=== PATIENT | female | born 1930 | race Caucasian/White ===

== ENCOUNTER 2017-12-03 11:52 | Inpatient (IN) | payer OTHER ==
[~2017-12-03] VITALS: Ht 160 cm; Wt 54.3 kg
[~2017-12-03 11:52] MED LIST: ASPCH81X PO; CARV3.12 PO; DOCU60SY PO; LEVE100S10 PO; LISI-729 PO; MULTTAB58 PO; OMEP20TA PO; POLY335040 PO; [UNRECOGNIZED DRUG - REMARK]
[2017-12-03 12:44] LABS: BASO % 0.6 %; BASO ABS # 0.05 K/uL (0-0.2); EOS % 0.8 %; EOS ABS # 0.07 K/uL (0-0.5); HEMATOCRIT 48.7 % (37-47); IG# 0.02 K/uL (0.00-0.02); LYMPH % 21.1 %; MEAN CELL VOLUME 100.2 fL (80-100); MEAN CORPUSCULAR HEMOGLOBIN 32.9 pg (25-34); MEAN CORPUSCULAR HGB CONC 32.9 g/dl (32-36); MEAN PLATELET VOLUME 12.5 fL (7.4-10.4); MONO % 6.4 %; MONO ABS # 0.58 K/uL (0.11-0.59); NEUT % 70.9 %; NEUT ABS # 6.39 K/uL (1.4-6.5); PLATELET COUNT 252 K/uL (130-400); RED CELL DISTRIBUTION WIDTH CV 13.5 % (11.5-14.5); WHITE BLOOD COUNT 9.01 K/uL (4.8-10.8)
[2017-12-03 13:03] LABS: ALBUMIN 3.4 gm/dl (3.4-5.0); CALCIUM 10.7 mg/dl (8.5-10.1); CREATININE 1.06 mg/dl (0.60-1.20)
[2017-12-03] MEDS ORDERED: SODIUM CHLORIDE 0.9% 1000ML 1,000 ML IV STA (13:04)
[2017-12-03] MEDS ORDERED: HYDR-5688 PO (13:16)
[2017-12-03] MEDS ORDERED: SODIUM CHLORIDE 0.9% 500ML 500 ML IV STA (13:33)
--- NOTE | 2017-12-03 13:43 | EMERGENCY ROOM VISIT NOTE ---
History Report prepared by Crystal: Balaji Waldron Under the Supervision of: Dr. David Núñez M.D. First contact with patient: 12:06 Chief Complaint: ABDOMINAL PAIN Stated Complaint: ABDOMINAL DISTENTION Nursing Triage Summary: Patient sent ALS from [facility] for abdominal distension with x-ray showing colonic ileus and elevated liver enzymes. Patient unable to verbally communicate History of Present Illness The patient is a 87 year old female who presents to the Emergency Room with complaints of RUQ abdominal pain that began a few days ago. This HPI is limited secondary to the patient's mental status. This history is provided by the patient's assisted. 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 She is nonverbal. Over this time, they have noticed that the patient's abdomen seems more distended than usual. The patient received an X-ray which showed colonic ileus. Source of History: assisted notes History Limited By: AMS Onset: a couple days ago Position: abdomen Symptom Intensity: moderate Quality: ache Timing: constant Review of Systems ROS is limited secondary to the patient's mental status. Past Medical & Surgical Medical Problems: (1) Alzheimer's disease (2) Benign hypertension (3) Dehydration (4) Dementia (5) Hysterectomy Family History Omitted secondary to the patient's age. Social History Smokeless Tobacco Use: No Alcohol Use: none Drug Use: none Marital Status: Occupation Status: retired Current/Historical Medications Scheduled Aspirin (Aspirin Chewable), 81 MG PO DAILY Carvedilol (Coreg), 3.125 MG PO BID Cholecalciferol (Vitamin D3), 1 TAB PO DAILY Docusate Sodium (Silace), 100 MG PO BID Levetiracetam (Keppra), 5 ML PO BID Lisinopril (Zestril), 5 MG PO DAILY Oseltamivir (Tamiflu), 75 MG PO DAILY Polyethylene Glycol 3350 (Miralax), 17 GM PO DAILY Ranitidine (Zantac), 150 MG PO HS Sennosides-Docusate Sodium (Senna-S), 2 TAB PO DAILYBD Scheduled PRN Bisacodyl (Bisac-Evac), 1 SUPP RE DAILY PRN for Constipation Hydrocodone/Acetaminophen 5MG/325MG ([place] 5MG/325MG), 1 TABLET PO BID PRN for Pain Allergies Coded Allergies: No Known Allergies (Verified , 12/03/17) Physical Exam Vital Signs Date Time Temp Pulse Resp B/P (MAP) Pulse Ox O2 Delivery O2 Flow Rate FiO2 12/03/17 18:23 51 16 159/91 99 Room Air 12/03/17 16:41 56 16 151/89 98 Room Air 12/03/17 16:33 52 12/03/17 14:48 54 16 139/78 97 Room Air 12/03/17 13:00 70 20 130/77 98 Room Air 12/03/17 12:26 67 12/03/17 12:05 36.3 67 20 130/77 97 Room Air Physical Exam GENERAL: Awake, alert, well-appearing, in no distress, grimacing intermittently. HENT: Normocephalic, atraumatic. Oropharynx unremarkable. EYES: Normal conjunctiva. Sclera non-icteric. NECK: Supple. No nuchal rigidity. FROM. No masses. RESPIRATORY: Clear to auscultation. No wheezes. CARDIAC: Normal rate. Normal rhythm. No murmurs. No rubs. Extremities warm and well perfused. Pulses equal. No JVD. GI: Soft, non-distended. Possible RUQ tenderness to palpation. No rebound or guarding. No masses. RECTAL: Deferred. MUSCULOSKELETAL: Atraumatic. Chest examination reveals no tenderness. The back is symmetrical on inspection without obvious abnormality. There is no CVA tenderness to palpation. No joint edema. LOWER EXTREMITIES: Calves are equal size bilaterally and non-tender. No edema. No discoloration. NEURO: Altered sensorium. Mumbling but essentially nonverbal. Contractures in the lower extremities and LUE. Opens eyes to voice. SKIN: No rash or jaundice noted. Medical Decision & Procedures ER Provider Diagnostic Interpretation: Radiology results as stated below per my review and radiologist interpretation: ABDOMEN AND PELVIS CT WITHOUT CONTRAST CT DOSE: 341.02 mGy.cm HISTORY: Acute abdominal distention with elevated LFTs elevated lfts, ileus on outpt xray TECHNIQUE: Multiaxial CT images of the abdomen and pelvis were performed without contrast. A dose lowering technique was utilized adhering to the principles of ALARA. COMPARISON STUDY: Right upper quadrant ultrasound of same day, abdominal ultrasound 12/07/2012. FINDINGS: Mild dependent subsegmental atelectasis. Calcified right hilar lymph nodes with calcified granuloma adjacent to the minor fissure. Mild nonspecific right basilar bronchial wall thickening. No pneumatosis or pneumoperitoneum identified. The imaged inferior cardiac chambers are within normal limits. Coronary arterial disease. Calcified granulomas are seen throughout the spleen. Pancreas and right adrenal gland are unremarkable. Nodular thickening of the left adrenal gland suggests hyperplasia. Low attenuating circumscribed ovoid 3.3 x 2.3 center lesion of the left hepatic lobe suggests hepatic cyst. No intrahepatic biliary ductal dilation identified. Cholelithiasis noted within the fundal gallbladder. Common bile duct is mildly dilated measuring up to 10 mm. No obstructing stone or lesion within the common bile duct is identified. Ovoid low attenuating exophytic lesion of the superior pole left kidney, 4.3 x 3.1 cm suggests renal cyst. 2 mm nonobstructing calculus of the inferior pole right kidney. There is no ureteral calculi or obstructive uropathy identified. Urinary bladder is collapsed with a Willis catheter in place. Air within the bladder lumen is likely secondary to recent instrumentation. Moderate atherosclerosis of the aorta without aneurysm. There is no bulky adenopathy identified. No bowel obstruction identified. There is moderate rectal wall thickening with minimal surrounding stranding and large rectal stool ball measuring up to 6.5 cm transversely. Extensive sigmoid diverticulosis without CT evidence of acute diverticulitis. Mild diastases recti. Soft tissues are unremarkable. Calcified granulomas of the subcutaneous gluteal tissues. The bones appear osteoporotic. There is a chronic appearing displaced subcapital fracture of the left femur with superolateral displacement of approximately 2.4 cm. IMPRESSION: 1. Large stool ball in the rectum with associated rectal wall thickening and mild surrounding inflammatory stranding suggests stercoral proctitis. No associated bowel obstruction. 2. Colonic diverticulosis without CT evidence of acute diverticulitis. 3. Cholelithiasis and mild common bile duct dilation without CT evidence of acute cholecystitis. 4. Prior granulomatous disease. 5. 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 6. 2 mm nonobstructing calculus of the inferior pole right kidney. Electronically signed by: Darrel Hernandez M.D. 12/03/2017 2:58 PM Dictated Date/Time: 12/03/2017 2:49 PM CHEST ONE VIEW PORTABLE HISTORY: elevated LFTs, abdomen distension COMPARISON: Chest 11/27/2012. FINDINGS: The patient is slightly rotated. The lungs are clear. No pleural effusions. No pneumothorax. The heart is normal in size. IMPRESSION: No acute process. Electronically signed by: Pedro Dia M.D. 12/03/2017 1:41 PM Dictated Date/Time: 12/03/2017 1:37 PM ABDOMINAL ULTRASOUND, RIGHT UPPER QUADRANT HISTORY: Altered mental status. Elevated liver function tests. COMPARISON: Abdominal ultrasound November 27, 2012. FINDINGS: Exam is compromised by suboptimal penetration. Note is made of a 3.8 cm hepatic cyst. The pancreas is obscured by overlying bowel gas. The right kidney is also largely obscured on this exam. No gallbladder wall thickening is noted. Suspected gallstones within the gallbladder fundus are noted. There is mild dilatation of the common bile duct which measures 9 mm in caliber. This appears diminished compared to exam of November 27, 2012. IMPRESSION: 1. Cholelithiasis. No sonographic evidence of acute cholecystitis. 2. Mild dilatation of the common bile duct which is either diminished or unchanged since ultrasound of November 27, 2012. Electronically signed by: Giancarlo Jacques M.D. 12/03/2017 2:47 PM Dictated Date/Time: 12/03/2017 2:42 PM Laboratory Results 12/03/17 12:25 Red Blood Count 4.86, Mean Corpuscular Volume 100.2, Mean Corpuscular Hemoglobin 32.9, Mean Corpuscular Hemoglobin Concent 32.9, Mean Platelet Volume 12.5, Neutrophils (%) (Auto) 70.9, Lymphocytes (%) (Auto) 21.1, Monocytes (%) ( Auto) 6.4, Eosinophils (%) (Auto) 0.8, Basophils (%) (Auto) 0.6, Neutrophils # ( Auto) 6.39, Lymphocytes # (Auto) 1.90, Monocytes # (Auto) 0.58, Eosinophils # ( Auto) 0.07, Basophils # (Auto) 0.05 12/03/17 12:25 Test 12/03/17 12:25 12/03/17 13:10 12/03/17 16:56 White Blood Count 9.01 K/uL (4.8-10.8) Red Blood Count 4.86 M/uL (4.2-5.4) Hemoglobin 16.0 g/dL (12.0-16.0) Hematocrit 48.7 % (37-47) Mean Corpuscular Volume 100.2 fL (80-100) Mean Corpuscular Hemoglobin 32.9 pg (25-34) Mean Corpuscular Hemoglobin Concent 32.9 g/dl (32-36) Platelet Count 252 K/uL (130-400) Mean Platelet Volume 12.5 fL (7.4-10.4) Neutrophils (%) (Auto) 70.9 % Lymphocytes (%) (Auto) 21.1 % Monocytes (%) (Auto) 6.4 % Eosinophils (%) (Auto) 0.8 % Basophils (%) (Auto) 0.6 % Neutrophils # (Auto) 6.39 K/uL (1.4-6.5) Lymphocytes # (Auto) 1.90 K/uL (1.2-3.4) Monocytes # (Auto) 0.58 K/uL (0.11-0.59) Eosinophils # (Auto) 0.07 K/uL (0-0.5) Basophils # (Auto) 0.05 K/uL (0-0.2) RDW Standard Deviation 49.0 fL (36.4-46.3) RDW Coefficient of Variation 13.5 % (11.5-14.5) Immature Granulocyte % (Auto) 0.2 % Immature Granulocyte # (Auto) 0.02 K/uL (0.00-0.02) Anion Gap 6.0 mmol/L (3-11) Est Creatinine Clear Calc Drug Dose 32.1 ml/min Estimated GFR () 55.4 Estimated GFR (Non- 47.8 BUN/Creatinine Ratio 37.1 (10-20) Calcium Level 10.7 mg/dl (8.5-10.1) Total Bilirubin 2.7 mg/dl (0.2-1) Direct Bilirubin 0.5 mg/dl (0-0.2) Aspartate Amino Transf (AST/SGOT) 44 U/L (15-37) Alanine Aminotransferase (ALT/SGPT) 61 U/L (12-78) Alkaline Phosphatase 84 U/L (45-117) Troponin I 0.035 ng/ml (0-0.045) Total Protein 7.0 gm/dl (6.4-8.2) Albumin 3.4 gm/dl (3.4-5.0) Lipase 312 U/L (73-393) Urine Color DK YELLOW Urine Appearance CLEAR (CLEAR) Urine pH 5.0 (4.5-7.5) Urine Specific Tye 1.025 (1.000-1.030) Urine Protein NEG (NEG) Urine Glucose (UA) NEG (NEG) Urine Ketones TRACE (NEG) Urine Occult Blood NEG (NEG) Urine Nitrite POS (NEG) Urine Bilirubin NEG (NEG) Urine Urobilinogen NEG (NEG) Urine Leukocyte Esterase MODERATE (NEG) Urine WBC (Auto) 10-30 /hpf (0-5) Urine RBC (Auto) 0-4 /hpf (0-4) Urine Hyaline Casts (Auto) 5-10 /lpf (0-5) Urine Epithelial Cells (Auto) 0-5 /lpf (0-5) Urine Bacteria (Auto) 1+ (NEG) Lactic Acid Level 0.7 mmol/L (0.4-2.0) Procalcitonin < 0.05 ng/ml (0-0.5) Laboratory results reviewed by me Medications Administered Medications (Trade) Dose Ordered Sig/Yusuf Route Start Time Stop Time Status Last Admin Dose Admin Sodium Chloride 1,000 ml @ 125 mls/hr Q8H STAT IV 12/03/17 13:04 12/03/17 21:03 12/03/17 13:21 125 MLS/HR Sodium Chloride 500 ml @ 999 mls/hr Q31M STAT IV 12/03/17 13:33 12/03/17 14:03 DC 12/03/17 14:50 999 MLS/HR Ceftriaxone Sodium (Rocephin Inj) 1 gm NOW STAT IV 12/03/17 15:08 12/03/17 15:09 DC 12/03/17 15:16 1 GM ECG Indication: altered mental status Rate (beats per minute): 64 Rhythm: normal sinus Findings: nonspecific-ST abn (Inferior), T-wave inversion (Anterior) Comparison ECG Date: 02 Dec 2012 Change: no significant change Change: Patient's electrocardiogram was interpreted by me. ED Course 1206: The patient was evaluated in room B9. A complete history and physical exam was performed. 1304: Ordered Sodium Chloride 1000 ml @ 999 mls/hr IV 1333: Ordered Sodium Chloride 500 ml @ 999 mls/hr IV 1508: Ordered Rocephin Inj 1 gm IV 1630: Upon reexamination, the patient was resting. I discussed the test results and treatment plan [facility] The patient will be evaluated by him for further management. Medical Decision Prior records/ancillary studies reviewed and summarized above. Nursing notes reviewed and agree them. The patient's history was concerning for abdominal distention and elevated LFTs. Differential diagnosis: Etiologies such as biliary pathology, cholecystitis, liver failure, obstruction , infection, hypoglycemia, electrolyte abnormalities, cardiac sources, toxicologic, UTI, as well as others were entertained. Physical examination: As above. The patient will grimace and moan with palpation in the right upper quadrant. The patient had significant hypernatremia as well as dehydration on chemistry panel. ER treatment provided: IV Lock Normal saline hydration IV Rocephin On reassessment the patient felt better. Diagnostics interpretation by me: ECG: No acute ischemia. Normal rhythm. The labs revealed elevated LFTs. CBC unremarkable. Chemistry panel showed hypernatremia as well as dehydration. Urinalysis concerning for infection. Imaging studies: X-ray, ultrasound and CT as above The patient has dehydration, hypernatremia, mildly elevated LFTs, a mild proctitis/colitis secondary to constipation and a UTI. Further management in the hospital will be necessary. Consultation: A consultation was placed with the hospitalist. The case was discussed and diagnostics were reviewed. The patient was evaluated in the ER for further treatment. Medication Reconcilliation Current Medication List: was personally reviewed by me Blood Pressure Screening Patient's blood pressure: Normal blood pressure Blood pressure disposition: Did not require urgent referral Consults Time Called: 1625 Consulting Physician[facility] Call: 1630 Discussed the patient's case. The patient will be evaluated for further treatment and disposition. Impression Primary Impression: UTI (urinary tract infection) Additional Impressions: Hypernatremia Elevated LFTs Scribe Attestation The scribe's documentation has been prepared under my direction and personally reviewed by me in its entirety. I confirm that the note above accurately reflects all work, treatment, procedures, and medical decision making performed by me. Departure Information Dispostion Being Evaluated By Hospitalist Referrals Nickie Chapman (PCP) Patient Instructions My [facility] [address] Problem Qualifiers
--- NOTE | 2017-12-03 14:48 | DIAGNOSTIC IMAGING REPORT ---
ABDOMINAL ULTRASOUND, RIGHT UPPER QUADRANT HISTORY: Altered mental status. Elevated liver function tests. COMPARISON: Abdominal ultrasound November 27, 2012. FINDINGS: Exam is compromised by suboptimal penetration. Note is made of a 3.8 cm hepatic cyst. The pancreas is obscured by overlying bowel gas. The right kidney is also largely obscured on this exam. No gallbladder wall thickening is noted. Suspected gallstones within the gallbladder fundus are noted. There is mild dilatation of the common bile duct which measures 9 mm in caliber. This appears diminished compared to exam of November 27, 2012. IMPRESSION: 1. Cholelithiasis. No sonographic evidence of acute cholecystitis. 2. Mild dilatation of the common bile duct which is either diminished or unchanged since ultrasound of November 27, 2012. Electronically signed by: Giancarlo Jacques M.D. 12/03/2017 2:47 PM Dictated Date/Time: 12/03/2017 2:42 PM
--- NOTE | 2017-12-03 14:59 | DIAGNOSTIC IMAGING REPORT ---
ABDOMEN AND PELVIS CT WITHOUT CONTRAST CT DOSE: 341.02 mGy.cm HISTORY: Acute abdominal distention with elevated LFTs elevated lfts, ileus on outpt xray TECHNIQUE: Multiaxial CT images of the abdomen and pelvis were performed without contrast. A dose lowering technique was utilized adhering to the principles of ALARA. COMPARISON STUDY: Right upper quadrant ultrasound of same day, abdominal ultrasound 12/07/2012. FINDINGS: Mild dependent subsegmental atelectasis. Calcified right hilar lymph nodes with calcified granuloma adjacent to the minor fissure. Mild nonspecific right basilar bronchial wall thickening. No pneumatosis or pneumoperitoneum identified. The imaged inferior cardiac chambers are within normal limits. Coronary arterial disease. Calcified granulomas are seen throughout the spleen. Pancreas and right adrenal gland are unremarkable. Nodular thickening of the left adrenal gland suggests hyperplasia. Low attenuating circumscribed ovoid 3.3 x 2.3 center lesion of the left hepatic lobe suggests hepatic cyst. No intrahepatic biliary ductal dilation identified. Cholelithiasis noted within the fundal gallbladder. Common bile duct is mildly dilated measuring up to 10 mm. No obstructing stone or lesion within the common bile duct is identified. Ovoid low attenuating exophytic lesion of the superior pole left kidney, 4.3 x 3.1 cm suggests renal cyst. 2 mm nonobstructing calculus of the inferior pole right kidney. There is no ureteral calculi or obstructive uropathy identified. Urinary bladder is collapsed with a Willis catheter in place. Air within the bladder lumen is likely secondary to recent instrumentation. Moderate atherosclerosis of the aorta without aneurysm. There is no bulky adenopathy identified. No bowel obstruction identified. There is moderate rectal wall thickening with minimal surrounding stranding and large rectal stool ball measuring up to 6.5 cm transversely. Extensive sigmoid diverticulosis without CT evidence of acute diverticulitis. Mild diastases recti. Soft tissues are unremarkable. Calcified granulomas of the subcutaneous gluteal tissues. The bones appear osteoporotic. There is a chronic appearing displaced subcapital fracture of the left femur with superolateral displacement of approximately 2.4 cm. IMPRESSION: 1. Large stool ball in the rectum with associated rectal wall thickening and mild surrounding inflammatory stranding suggests stercoral proctitis. No associated bowel obstruction. 2. Colonic diverticulosis without CT evidence of acute diverticulitis. 3. Cholelithiasis and mild common bile duct dilation without CT evidence of acute cholecystitis. 4. Prior granulomatous disease. 5. 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 6. 2 mm nonobstructing calculus of the inferior pole right kidney. Electronically signed by: Darrel Hernandez M.D. 12/03/2017 2:58 PM Dictated Date/Time: 12/03/2017 2:49 PM
[2017-12-03] MEDS ORDERED: CEFTRIAXONE SOD INJ 1 GM ADDVIAL IV STA (15:08)
[2017-12-03] MEDS ORDERED: ONDANSETRON INJ 2 MG/ML 2 ML VIAL IV PRN (18:00)
[2017-12-03] MEDS ORDERED: ACETAMINOPHEN 325 MG TAB PO PRN (18:00)
[2017-12-03] MEDS ORDERED: SENN-104 PO (18:31)
[2017-12-03] MEDS ORDERED: DOCU60SY PO (18:31)
[2017-12-03] MEDS ORDERED: POLY335019 PO (18:31)
[2017-12-03] MEDS ORDERED: RANI150T85 PO (18:31)
[2017-12-03] MEDS ORDERED: BISA10SU7 RE (18:34)
[2017-12-03] MEDS ORDERED: CHOL1000 PO (18:34)
[2017-12-03] MEDS ORDERED: OSEL75CA12 PO (18:34)
[2017-12-03] MEDS ORDERED: BISACODYL 10 MG SUPP PR STA (18:34)
[2017-12-03] MEDS ORDERED: HYDROCODONE/ACETAMIN 5/325MG TAB PO PRN (18:45)
--- NOTE | 2017-12-03 19:30 | History and Physical ---
History & Physical Date & Time of Service: Dec 03, 2017 ~ 17:30 Chief Complaint: Abdominal Distention, Abnormal Labs Primary Care Physician: Dr. Corona History of Present Illness 87 year old female who was sent to the ED from [facility] for evaluation of abdominal distention and abnormal labs. History is unobtainable from patient due to her non verbal state. Review of outpatient records show that patient has had a very poor appetite recently. Labs were obtained that showed hypernatremia and elevated bilirubin. No other symptoms reported per view of outpatient chart. In the ED, patient's Na+ is 153 and U/A suggests UTI. Abdominal imaging shows constipation without other acute findings. Past Medical/Surgical History Medical Problems: (1) Alzheimer disease Status: Chronic (2) CKD (chronic kidney disease), stage III Status: Chronic (3) Epilepsy Status: Chronic (4) GERD (gastroesophageal reflux disease) Status: Chronic (5) HTN (hypertension) Status: Chronic (6) NSTEMI (non-ST elevated myocardial infarction) Permanent Comment: medically managed Status: Chronic Surgical Problems: (1) History of hysterectomy Status: Chronic Family History non contributory due to patient's advanced age Social History Smoking Status: Never Smoker Alcohol Use: none Housing status: alf Immunizations History of Tetanus Vaccine?: Unknown History of Hepatitis B Vaccine: Unknown Multi-Drug Resistant Organisms History of MDRO: No Allergies Coded Allergies: No Known Allergies (Verified , 12/03/17) Home Medications Scheduled Aspirin (Aspirin Chewable), 81 MG PO DAILY Carvedilol (Coreg), 3.125 MG PO BID Cefuroxime Axetil (Cefuroxime Axetil), 1 TAB PO BID Cholecalciferol (Vitamin D3), 1 TAB PO DAILY Levetiracetam (Keppra), 5 ML PO BID Lisinopril (Zestril), 5 MG PO DAILY Oseltamivir (Tamiflu), 75 MG PO DAILY Polyethylene Glycol 3350 (Miralax), 17 GM PO DAILY Ranitidine (Zantac), 150 MG PO HS Senna (Senna-Grx), 17.6 MG PO QAM Scheduled PRN Bisacodyl (Bisac-Evac), 1 SUPP RE DAILY PRN for Constipation Hydrocodone/Acetaminophen 5MG/325MG ([place] 5MG/325MG), 1 TABLET PO BID PRN for Pain Review of Systems unobtainable due to patient's mental status Physical Exam Vital Signs Date Time Temp Pulse Resp B/P (MAP) Pulse Ox O2 Delivery O2 Flow Rate FiO2 12/03/17 18:23 51 16 159/91 99 Room Air 12/03/17 16:41 56 16 151/89 98 Room Air 12/03/17 16:33 52 12/03/17 14:48 54 16 139/78 97 Room Air 12/03/17 13:00 70 20 130/77 98 Room Air 12/03/17 12:26 67 12/03/17 12:05 36.3 67 20 130/77 97 Room Air General Appearance: WD/WN, no apparent distress Head: normocephalic, atraumatic Eyes: normal inspection, EOMI, sclerae normal ENT: hearing grossly normal, + pertinent finding (mucous membranes dry) Neck: supple, no JVD, trachea midline Respiratory/Chest: lungs clear, normal breath sounds, no respiratory distress Cardiovascular: regular rate, rhythm, no edema, normal peripheral pulses Abdomen/GI: normal bowel sounds, non tender, soft, no organomegaly Genitourinary - Female: + pertinent finding (cohen in place) Extremities/Musculoskelatal: no calf tenderness, normal capillary refill, + pertinent finding (BL foot drop) Neurologic/Psych: alert, + pertinent finding (non verbal) Skin: normal color, warm/dry Diagnostics Laboratory Results Results Past 24 Hours Test 12/03/17 12:25 12/03/17 13:10 12/03/17 16:56 12/03/17 18:46 Range/Units White Blood Count 9.01 4.8-10.8 K/uL Red Blood Count 4.86 4.2-5.4 M/uL Hemoglobin 16.0 12.0-16.0 g/dL Hematocrit 48.7 37-47 % Mean Corpuscular Volume 100.2 80-100 fL Mean Corpuscular Hemoglobin 32.9 25-34 pg Mean Corpuscular Hemoglobin Concent 32.9 32-36 g/dl Platelet Count 252 130-400 K/uL Mean Platelet Volume 12.5 7.4-10.4 fL Neutrophils (%) (Auto) 70.9 % Lymphocytes (%) (Auto) 21.1 % Monocytes (%) (Auto) 6.4 % Eosinophils (%) (Auto) 0.8 % Basophils (%) (Auto) 0.6 % Neutrophils # (Auto) 6.39 1.4-6.5 K/uL Lymphocytes # (Auto) 1.90 1.2-3.4 K/uL Monocytes # (Auto) 0.58 0.11-0.59 K/uL Eosinophils # (Auto) 0.07 0-0.5 K/uL Basophils # (Auto) 0.05 0-0.2 K/uL RDW Standard Deviation 49.0 36.4-46.3 fL RDW Coefficient of Variation 13.5 11.5-14.5 % Immature Granulocyte % (Auto) 0.2 % Immature Granulocyte # (Auto) 0.02 0.00-0.02 K/uL Sodium Level 153 136-145 mmol/L Potassium Level 4.0 3.5-5.1 mmol/L Chloride Level 120 98-107 mmol/L Carbon Dioxide Level 27 21-32 mmol/L Anion Gap 6.0 3-11 mmol/L Blood Urea Nitrogen 39 7-18 mg/dl Creatinine 1.06 0.60-1.20 mg/dl Est Creatinine Clear Calc Drug Dose 32.1 ml/min Estimated GFR () 55.4 Estimated GFR (Non- 47.8 BUN/Creatinine Ratio 37.1 10-20 Random Glucose 160 70-99 mg/dl Calcium Level 10.7 8.5-10.1 mg/dl Total Bilirubin 2.7 0.2-1 mg/dl Direct Bilirubin 0.5 0-0.2 mg/dl Aspartate Amino Transf (AST/SGOT) 44 15-37 U/L Alanine Aminotransferase (ALT/SGPT) 61 12-78 U/L Alkaline Phosphatase 84 45-117 U/L Troponin I 0.035 0-0.045 ng/ml Total Protein 7.0 6.4-8.2 gm/dl Albumin 3.4 3.4-5.0 gm/dl Lipase 312 73-393 U/L Urine Color DK YELLOW Urine Appearance CLEAR CLEAR Urine pH 5.0 4.5-7.5 Urine Specific [place] 1.025 1.000-1.030 Urine Protein NEG NEG Urine Glucose (UA) NEG NEG Urine Ketones TRACE NEG Urine Occult Blood NEG NEG Urine Nitrite POS NEG Urine Bilirubin NEG NEG Urine Urobilinogen NEG NEG Urine Leukocyte Esterase MODERATE NEG Urine WBC (Auto) 10-30 0-5 /hpf Urine RBC (Auto) 0-4 0-4 /hpf Urine Hyaline Casts (Auto) 5-10 0-5 /lpf Urine Epithelial Cells (Auto) 0-5 0-5 /lpf Urine Bacteria (Auto) 1+ NEG Lactic Acid Level 0.7 0.4-2.0 mmol/L Procalcitonin < 0.05 0-0.5 ng/ml Microbiology Results 12/03/17 Urine Culture, Received Pending Diagnostic Radiology CT ABD/PELVIS IMPRESSION: 1. Large stool ball in the rectum with associated rectal wall thickening and mild surrounding inflammatory stranding suggests stercoral proctitis. No associated bowel obstruction. 2. Colonic diverticulosis without CT evidence of acute diverticulitis. 3. Cholelithiasis and mild common bile duct dilation without CT evidence of acute cholecystitis. 4. Prior granulomatous disease. 5. 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 6. 2 mm nonobstructing calculus of the inferior pole right kidney. CXR IMPRESSION: No acute process. RUQ US IMPRESSION: 1. Cholelithiasis. No sonographic evidence of acute cholecystitis. 2. Mild dilatation of the common bile duct which is either diminished or unchanged since ultrasound of November 27, 2012. Impression Assessment and Plan HYPERNATREMIA - admit to med/surg - patient presenting from [facility] for evaluation of abdominal distention and hypernatremia, history unobtainable from patient due to her non verbal state - likely due to dehydration from poor PO intake - will start D5W, monitor Na+ levels closely UTI - s/p Rocephin in the ED, will continue with and adjust per culture results CONSTIPATION - bowel regimen HTN - BP controlled, continue carvedilol and lisinopril EPILEPSY - continue Keppra ALZHEIMER'S DVT PROPHYLAXIS - SQ Lovenox CODE STATUS - Patient is a DNR as per my discussion with patient's , Juan M. DISPO - In my clinical judgment this beneficiary meets acute admission criteria, established by [facility], that includes being hospitalized through two midnights. - Expect d/c back to [facility] once medically stable ATTENDING ADDENDUM : pt seen and examined , care co-ordinated with Sasha OLIVEIRA 87 yo F with advanced dementia Alzheimer's type , resident at [facility] , presented with abdominal distention found to be severely dehydrated with hypernatremia CT abdomen /pelvis shows : Large stool ball in the rectum with associated rectal wall thickening and mild surrounding inflammatory stranding suggests stercoral proctitis. No associated bowel obstruction. 2. Colonic diverticulosis without CT evidence of acute diverticulitis. UA + ve admit to medical floor , IV F serial BMP check to prevent over correction bowel regimen ordered for severe constipation please refer to further documentation of Sasha OLIVEIRA for discussion of other issues Carol Guerrero MD VTE Prophylaxis VTE Risk Assessment Done? Y/N: Yes Risk Level: Moderate
[2017-12-03] MEDS ORDERED: POLYETHYLENE (MIRALAX) 17 GM PACK PO SCH (20:00)
[2017-12-03 20:18] LABS: PTT PATIENT 24.4 SECONDS (21.0-31.0)
[2017-12-03] MEDS: DEXTROSE 5% 1000ML 1,000 ML IV SCH (20:20)
[2017-12-03 21:08] VITALS: Ht 160 cm; Wt 54.3 kg
[2017-12-03 21:51] VITALS: BP 160/84; PULSE 82; TEMP 36.4; O2SAT 96
[2017-12-03] MEDS: LEVETIRACETAM SOLN 500 MG/5 ML UDP PO SCH (21:55)
[2017-12-03] MEDS: DOCUSATE SODIUM 100 MG/10 ML UDC PO SCH (21:55)
[2017-12-03] MEDS: CARVEDILOL 3.125 MG TAB PO SCH (21:56)
[2017-12-03] MEDS: RANITIDINE HCL 150 MG TAB PO SCH (21:57)
[2017-12-03] MEDS: ENOXAPARIN 40 MG/0.4 ML SYR SQ SCH (21:58)
[2017-12-03 23:35] VITALS: BP 161/95; PULSE 61; TEMP 36.5; O2SAT 97
[2017-12-04] MEDS ORDERED: INFLUENZA ADMINISTRATION CHARGE ONE (06:30)
[2017-12-04] MEDS ORDERED: INFLUENZA VACCINE HIGH DOSE 65+ 0.5 ML SYR IM. ONE (06:30)
[2017-12-04] MEDS ORDERED: PNEUMOCOCCAL ADMINISTRATION CHARGE ONE (06:30)
[2017-12-04] MEDS ORDERED: PNEUMOCOCCAL POLYSACCHARIDES 25 MCG/0.5 ML VIAL/SYR IM. ONE (06:30)
[2017-12-04] MEDS: DEXTROSE 5% 1000ML 1,000 ML IV SCH (06:45)
[2017-12-04 07:21] VITALS: BP 144/82; PULSE 49; TEMP 36.2; O2SAT 96
[2017-12-04] MEDS: SENNA 8.6 MG TAB PO SCH (07:59)
[2017-12-04] MEDS: CARVEDILOL 3.125 MG TAB PO SCH ×2 (07:59→20:08)
[2017-12-04] MEDS: CHOLECALCIFEROL 1000 INTER.UNIT TAB PO SCH (08:00)
[2017-12-04] MEDS: LISINOPRIL 5 MG TAB PO SCH (08:00)
[2017-12-04] MEDS: ASPIRIN 81 MG CHEW PO SCH (08:00)
[2017-12-04] MEDS: DOCUSATE SODIUM 100 MG/10 ML UDC PO SCH ×2 (08:02→19:58)
[2017-12-04] MEDS: LEVETIRACETAM SOLN 500 MG/5 ML UDP PO SCH ×2 (08:02→19:59)
[2017-12-04] MEDS: POLYETHYLENE (MIRALAX) 17 GM PACK PO SCH ×4 (08:02→20:00)
[2017-12-04 08:22] LABS: HEMATOCRIT 42.9 % (37-47); HEMOGLOBIN 14.1 g/dL (12.0-16.0); MEAN CELL VOLUME 99.5 fL (80-100); MEAN CORPUSCULAR HEMOGLOBIN 32.7 pg (25-34); MEAN CORPUSCULAR HGB CONC 32.9 g/dl (32-36); MEAN PLATELET VOLUME 12.5 fL (7.4-10.4); PLATELET COUNT 208 K/uL (130-400); RED CELL DISTRIBUTION WIDTH CV 13.5 % (11.5-14.5); RED CELL DISTRIBUTION WIDTH SD 48.6 fL (36.4-46.3); WHITE BLOOD COUNT 8.82 K/uL (4.8-10.8)
--- NOTE | 2017-12-04 08:31 | Clinical Documentation Query ---
CLINICAL DOCUMENTATION QUERY Dr. HANNA, In your clinical opinion is this patient being managed for: (X )Possible Functional quadriplegia in the setting of Alzheimer's ( ) Not Agree ( ) Other explanation of clinical findings (Please Explain) ( ) Unable to determine (Please Define) ( ) Need to Discuss The medical record reflects the following clinical findings, treatment, and risk factors. Clinical Indicators: 87 yo female presenting with UTI and hypernatremia. Contractures x bilateral LE and LUE. Noted to be completely disabled, nonverbal and dependent for all ADL's. Pt is a resident at a long-term. Treatment: complete care provided by staff, turn and reposition q 2 hrs, pressure ulcer precautions Risk Factors: Alzheimer's disease Functional quadriplegia is not a true paresis. It is the inability to move due to another condition (e.g., dementia, severe contractures, arthritis, etc.). The patient is immobile because of a severe physical disability or frailty. There is usually some underlying cause, which most often will involve severe dementia. The individual does not have the mental ability to ambulate and functionally is the same as a paralyzed person. Please clarify and document your clinical opinion in the progress notes and discharge summary. Terms such as "probable", "suspected", "likely", "questionable", "possible", or "still to be ruled out" are acceptable. IF IN AGREEMENT, YOU MUST DOCUMENT ABOVE DIAGNOSTIC STATEMENT IN DAILY PROGRESS NOTES AND DISCHARGE SUMMARY. This document is not part of the patient's record. Thank You, Rubia Ye RN [phone]
[2017-12-04 08:51] LABS: ALBUMIN 2.9 gm/dl (3.4-5.0); CALCIUM 10.1 mg/dl (8.5-10.1); CREATININE 0.79 mg/dl (0.60-1.20); POTASSIUM 3.7 mmol/L (3.5-5.1)
[2017-12-04 08:54] LABS: TOTAL PROTEIN 5.8 gm/dl (6.4-8.2)
[2017-12-04] MEDS ORDERED: BISACODYL 10 MG SUPP PR ONE (10:00)
[2017-12-04] MEDS ORDERED: METHYLNALTREXONE BROMIDE INJ 12 MG/0.6 ML SYR SQ ONE (12:45)
[2017-12-04] MEDS ORDERED: POLYETHYLENE (MIRALAX) 17 GM PACK PO ONE ×3 (12:45→20:00)
--- NOTE | 2017-12-04 12:58 | Gastrointestinal Consultation ---
Gastrointestinal Consultation Date of Consultation: Dec 04, 2017 Attending Physician: Dr. Guerrero Consulting Physician: Dr. Solorio Reason for Consultation: Abdominal pain, severe constipation History of Present Illness Patient is a 87 year old female with hx of CAD, VT, Dementia resident at [facility] was brought to [facility] yesterday for abdominal pain. CT with fecal impaction. GI is consulted for abdominal pain and constipation. On the non contrast CT, there was also a Cholelithiasis and mild common bile duct dilation without CT evidence of acute cholecystitis. A review of records shows that her CBD is chronically dilated (US in 2013 was 13cm). She also has mild LFT elevation T Bili yesterday 2.7, today 2.5; D bili 0.5 yesterday, today 0.4, AST, ALT and ALk Phos have been normal. Past Medical/Surgical History Past Medical History: (1) Alzheimer disease (2) CKD (chronic kidney disease), stage III (3) Epilepsy (4) GERD (gastroesophageal reflux disease) (5) HTN (hypertension) (6) NSTEMI (non-ST elevated myocardial infarction) Past Surgical History: Hysterectomy Social History Smoking Status: Unknown if Ever Smoked Alcohol Use: none Allergies Coded Allergies: No Known Allergies (Verified , 12/03/17) Current Medications Home Meds and Scripts Medications Dose Route/Sig Max Daily Dose Days Date Category Dose Instructions Bisac-Evac (Bisacodyl) 10 Mg Sup 1 Supp RE DAILY PRN 12/03/17 Reported Vitamin D3 (Cholecalciferol) 1,000 Unit Tab 1 Tab PO DAILY 30 12/03/17 Reported Tamiflu (Oseltamivir Phosphate) 75 Mg Cap 75 Mg PO DAILY 12/03/17 Reported prophylaxis, to complete on 12/05 Silace (Docusate Sodium) 60 Mg/15 Ml Syp 100 Mg PO BID 12/03/17 Reported Senna-S (Sennosides-Docusate Sodium) 1 Tab Tab 2 Tab PO DAILYBD 12/03/17 Reported Zantac (Ranitidine HCl) 150 Mg Tab 150 Mg PO HS 12/03/17 Reported Miralax (Polyethylene Glycol 3350) 1 Pow Pow 17 Gm PO DAILY 12/03/17 Reported [place] 5MG/325MG (Acetaminophen/Hydrocodone Bitart) Tab 1 Tablet PO BID PRN 12/03/17 Reported MAX 3 GM APAP/24 HRS Keppra (Levetiracetam) 100 Mg/Ml Dian 5 Ml PO BID 30 06/22/13 Rx Coreg (Carvedilol) 3.125 Mg Tab 3.125 Mg PO BID 06/22/13 Reported Zestril (Lisinopril) 5 Mg Tab 5 Mg PO DAILY 06/22/13 Reported Aspirin Chewable (Aspirin) 81 Mg Chew 81 Mg PO DAILY 11/27/12 Reported Review of Systems Unable to obtain ROS due to pt dementia Physical Exam Date Time Temp Pulse Resp B/P (MAP) Pulse Ox O2 Delivery O2 Flow Rate FiO2 12/04/17 08:00 Room Air 12/04/17 07:21 36.2 49 16 144/82 (102) 96 Room Air 12/04/17 00:45 Room Air 12/03/17 23:35 36.5 61 18 161/95 (117) 97 Room Air 12/03/17 21:51 36.4 82 18 160/84 (109) 96 Room Air 12/03/17 21:08 Room Air 12/03/17 18:23 51 16 159/91 99 Room Air 12/03/17 16:41 56 16 151/89 98 Room Air 12/03/17 16:33 52 12/03/17 14:48 54 16 139/78 97 Room Air 12/03/17 13:00 70 20 130/77 98 Room Air General Appearance: no apparent distress Neck: no JVD Respiratory/Chest: lungs clear Cardiovascular: regular rate, rhythm, no JVD, no murmur Abdomen: non tender, soft Extremities: no pedal edema Neurologic/Psych: alert Skin: normal color, no jaundice Rectal exam with brown, loose stool in the rectum, the fecal impaction was not palpable. Laboratory Results Last 24 Hours Test 12/03/17 13:10 12/03/17 16:56 12/03/17 18:46 12/03/17 22:51 Urine Color DK YELLOW Urine Appearance CLEAR Urine pH 5.0 Urine Specific [place] 1.025 Urine Protein NEG Urine Glucose (UA) NEG Urine Ketones TRACE Urine Occult Blood NEG Urine Nitrite POS Urine Bilirubin NEG Urine Urobilinogen NEG Urine Leukocyte Esterase MODERATE Urine WBC (Auto) 10-30 /hpf Urine RBC (Auto) 0-4 /hpf Urine Hyaline Casts (Auto) 5-10 /lpf Urine Epithelial Cells (Auto) 0-5 /lpf Urine Bacteria (Auto) 1+ Lactic Acid Level 0.7 mmol/L Procalcitonin < 0.05 ng/ml Sodium Level 153 mmol/L 148 mmol/L Test 12/04/17 07:41 White Blood Count 8.82 K/uL Red Blood Count 4.31 M/uL Hemoglobin 14.1 g/dL Hematocrit 42.9 % Mean Corpuscular Volume 99.5 fL Mean Corpuscular Hemoglobin 32.7 pg Mean Corpuscular Hemoglobin Concent 32.9 g/dl RDW Standard Deviation 48.6 fL RDW Coefficient of Variation 13.5 % Platelet Count 208 K/uL Mean Platelet Volume 12.5 fL Sodium Level 149 mmol/L Potassium Level 3.7 mmol/L Chloride Level 118 mmol/L Carbon Dioxide Level 26 mmol/L Anion Gap 5.0 mmol/L Blood Urea Nitrogen 31 mg/dl Creatinine 0.79 mg/dl Est Creatinine Clear Calc Drug Dose 43.1 ml/min Estimated GFR () 79.1 Estimated GFR (Non- 68.3 BUN/Creatinine Ratio 39.2 Random Glucose 100 mg/dl Calcium Level 10.1 mg/dl Total Bilirubin 2.5 mg/dl Direct Bilirubin 0.4 mg/dl Aspartate Amino Transf (AST/SGOT) 29 U/L Alanine Aminotransferase (ALT/SGPT) 45 U/L Alkaline Phosphatase 68 U/L Total Protein 5.8 gm/dl Albumin 2.9 gm/dl Impression Patient is a 87 year old female with constipation, fecal impaction. She also has mild elevation in bilirubin w/o evidence of gallbladder disease or choledocholithiasis. Plan 1. Recheck LFTs tomorrow. 2. For constipation: Mirlax, tap water enemas Q 4 hrs today, Relistor. One Dulcolax suppository today. I have seen , examined and agree with the plan as outlined by TEE Preciado as above. -exam reveals soft abd -Follow liver function tests, likely dehydration or infectious in etiology
--- NOTE | 2017-12-04 13:04 | Progress Note ---
Internal Med Progress Note Date of Service: Dec 04, 2017. Provider Documentation: SUBJECTIVE: Seen and examined at bedside Patient is non verbal Seemed to be comfortable lying in bed Had BM today No family at bedside Sodium levels slowing trending down OBJECTIVE: Vital Signs-as noted below Physical Exam: General Appearance:Moderately built and nourished, no apparent distress Head: normocephalic, Atraumatic Eyes: normal inspection, EOMI, PERRL Neck: supple, Trachea midline Respiratory/Chest: Normal breath sounds, CTA Cardiovascular: S1, S2, No murmur Abdomen/GI:Soft, Non tender, Bowel sounds present Extremities/Musculoskelatal:normal inspection, no edema, +foot drop Neurologic/Psych:Complete Neuro exam could not be performed, Non verbal Skin: normal color, warm Lab data as noted below. ASSESSMENT & PLAN: Hypernatremia Patient presents from [facility] for evaluation of abdominal distention and hypernatremia, history unobtainable from patient due to her non verbal state likely secondary to dehydration from poor PO intake and UTI Continue D5W Monitor sodium levels UTI Urine culture:gram negative bacilli Continue Rocephin Day # 2 Constipation: secondary to fecal impaction Continue bowel regimen Appreciate GI input Mild Elevation of LFTs: Gall bladder USD: Cholelithiasis HTN continue carvedilol, lisinopril Epilepsy: continue Keppra Alzheimer's Dementia: Possible Functional Quadriplegia Seemed to be at baseline DVT Px: SQ Lovenox CODE STATUS DNR Disposition: Expect to discharge back to [facility] when medically stable Vital Signs: Date Time Temp Pulse Resp B/P (MAP) Pulse Ox O2 Delivery O2 Flow Rate FiO2 12/04/17 16:00 96 Room Air 12/04/17 15:58 36.3 52 16 128/69 (88) 12/04/17 08:00 Room Air 12/04/17 07:21 36.2 49 16 144/82 (102) 96 Room Air 12/04/17 00:45 Room Air 12/03/17 23:35 36.5 61 18 161/95 (117) 97 Room Air 12/03/17 21:51 36.4 82 18 160/84 (109) 96 Room Air 12/03/17 21:08 Room Air 12/03/17 18:23 51 16 159/91 99 Room Air Lab Results: Results Past 24 Hours Test 12/03/17 18:46 2/14/18 22:51 12/04/17 07:41 Range/Units Sodium Level 153 148 149 136-145 mmol/L White Blood Count 8.82 4.8-10.8 K/uL Red Blood Count 4.31 4.2-5.4 M/uL Hemoglobin 14.1 12.0-16.0 g/dL Hematocrit 42.9 37-47 % Mean Corpuscular Volume 99.5 80-100 fL Mean Corpuscular Hemoglobin 32.7 25-34 pg Mean Corpuscular Hemoglobin Concent 32.9 32-36 g/dl RDW Standard Deviation 48.6 36.4-46.3 fL RDW Coefficient of Variation 13.5 11.5-14.5 % Platelet Count 208 130-400 K/uL Mean Platelet Volume 12.5 7.4-10.4 fL Potassium Level 3.7 3.5-5.1 mmol/L Chloride Level 118 98-107 mmol/L Carbon Dioxide Level 26 21-32 mmol/L Anion Gap 5.0 3-11 mmol/L Blood Urea Nitrogen 31 7-18 mg/dl Creatinine 0.79 0.60-1.20 mg/dl Est Creatinine Clear Calc Drug Dose 43.1 ml/min Estimated GFR () 79.1 Estimated GFR (Non- 68.3 BUN/Creatinine Ratio 39.2 10-20 Random Glucose 100 70-99 mg/dl Calcium Level 10.1 8.5-10.1 mg/dl Total Bilirubin 2.5 0.2-1 mg/dl Direct Bilirubin 0.4 0-0.2 mg/dl Aspartate Amino Transf (AST/SGOT) 29 15-37 U/L Alanine Aminotransferase (ALT/SGPT) 45 12-78 U/L Alkaline Phosphatase 68 45-117 U/L Total Protein 5.8 6.4-8.2 gm/dl Albumin 2.9 3.4-5.0 gm/dl
[2017-12-04] MEDS: CEFTRIAXONE SOD INJ 1 GM in DEXTROSE 5% ADD-VANTAGE 50ML 50 ML IV SCH (15:44)
[2017-12-04 15:58] VITALS: BP 128/69; PULSE 52; TEMP 36.3
[2017-12-04 16:00] VITALS: O2SAT 96
[2017-12-04] MEDS ORDERED: SODIUM CHLORIDE 0.45% 1000ML 500 ML IV ONE (18:00)
[2017-12-04 20:02] VITALS: BP 118/67; PULSE 62
[2017-12-04] MEDS: ENOXAPARIN 40 MG/0.4 ML SYR SQ SCH (20:07)
[2017-12-04] MEDS: RANITIDINE HCL 150 MG TAB PO SCH (20:08)
[2017-12-04 23:09] VITALS: BP 118/67; PULSE 64; TEMP 37.3; O2SAT 92
[2017-12-05] VITALS (8 sets, daily range): BP systolic 105–132; BP diastolic 57–74; PULSE 42–70; TEMP 34.8–36.9; O2SAT 92–96
[2017-12-05] MEDS: DEXTROSE 5% 1000ML 1,000 ML IV SCH (02:41)
[2017-12-05 05:53] LABS: HEMATOCRIT 38.9 % (37-47); MEAN CELL VOLUME 97.7 fL (80-100); MEAN CORPUSCULAR HEMOGLOBIN 32.7 pg (25-34); MEAN CORPUSCULAR HGB CONC 33.4 g/dl (32-36); MEAN PLATELET VOLUME 12.2 fL (7.4-10.4); PLATELET COUNT 187 K/uL (130-400); RED CELL DISTRIBUTION WIDTH CV 13.2 % (11.5-14.5); RED CELL DISTRIBUTION WIDTH SD 47.3 fL (36.4-46.3); WHITE BLOOD COUNT 7.98 K/uL (4.8-10.8)
[2017-12-05 06:31] LABS: ALBUMIN 2.6 gm/dl (3.4-5.0); CALCIUM 9.6 mg/dl (8.5-10.1); CREATININE 0.87 mg/dl (0.60-1.20); POTASSIUM 3.8 mmol/L (3.5-5.1)
[2017-12-05 06:34] LABS: TOTAL PROTEIN 5.4 gm/dl (6.4-8.2)
[2017-12-05] MEDS: CHOLECALCIFEROL 1000 INTER.UNIT TAB PO SCH (07:33)
[2017-12-05] MEDS: LEVETIRACETAM SOLN 500 MG/5 ML UDP PO SCH ×2 (07:33→21:17)
[2017-12-05] MEDS: LISINOPRIL 5 MG TAB PO SCH (07:33)
[2017-12-05] MEDS: ASPIRIN 81 MG CHEW PO SCH (07:33)
[2017-12-05] MEDS: SENNA 8.6 MG TAB PO SCH (07:33)
[2017-12-05] MEDS: CARVEDILOL 3.125 MG TAB PO SCH ×3 (07:33→21:19)
[2017-12-05] MEDS: POLYETHYLENE (MIRALAX) 17 GM PACK PO SCH (07:34)
[2017-12-05] MEDS: DOCUSATE SODIUM 100 MG/10 ML UDC PO SCH (07:34)
[2017-12-05] MEDS ORDERED: BISACODYL 5 MG TABEC PO ONE (08:30)
--- NOTE | 2017-12-05 09:27 | DIAGNOSTIC IMAGING REPORT ---
KUB CLINICAL HISTORY: fecal impaction ? any improvement in size pain COMPARISON STUDY: CT 12/03/2017 FINDINGS: The soft tissues, psoas shadows, renal outlines and intestinal gas pattern appear normal. There is no evidence for bowel obstruction. No abnormal abdominal calcifications are seen. Nonobstructive bowel pattern. No current evidence for fecal impaction. IMPRESSION: Nonobstructive bowel pattern. No current evidence for fecal impaction. 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 The above report was generated using voice recognition software. It may contain grammatical, syntax or spelling errors. Electronically signed by: Robert Nolan M.D. 12/05/2017 9:26 AM Dictated Date/Time: 12/05/2017 9:25 AM
--- NOTE | 2017-12-05 11:42 | Gastroenterology Progress Note ---
Progress Note Date of Service: Dec 05, 2017 Subjective Pt evaluation today including: conversation w/ patient, physical exam, chart review, lab review, review of studies, review of inpatient medication list Ms. Escobedo is an 87 yr old female with dementia, admitted on 12/03 for abdominal pain and distention. Being tx for a UTI. CT with a 6cm fecal impaction on arrival. Constipation was tx with Relistor, multiple doses of Miralax, enema and Dulcolax suppository yesterday. Today, abdomen is soft, not distention, no evidence of pain. Nursing tells me that she has had several large loose brown stools. KUB today: no fecal impaction. Review of Systems Unobtainable secondary to dementia. Medications Current Inpatient Medications Medications (Trade) Dose Ordered Sig/Yusuf Route Start Time Stop Time Status Last Admin Dose Admin Enoxaparin Sodium (Lovenox Inj) 40 mg Q24H SQ 12/03/17 21:00 01/02/18 20:59 12/04/17 20:07 40 MG Acetaminophen (Tylenol Tab) 650 mg Q4H PRN PO 12/03/17 18:00 01/02/18 17:59 Ondansetron HCl (Zofran Inj) 4 mg Q6H PRN IV 12/03/17 18:00 01/02/18 17:59 Ceftriaxone Sodium 1 gm/ Dextrose 50 ml @ 100 mls/hr Q24H IV 12/04/17 15:00 12/12/17 15:29 12/04/17 15:44 100 MLS/HR Aspirin (Aspirin Chew) 81 mg DAILY PO 12/04/17 08:00 01/03/18 08:59 12/05/17 07:33 81 MG Carvedilol (Coreg Tab) 3.125 mg BID PO 12/03/17 20:00 01/02/18 20:59 12/04/17 20:08 3.125 MG Cholecalciferol (Vitamin D Tab) 1,000 inter.unit DAILY PO 12/04/17 08:00 01/03/18 08:59 12/05/17 07:33 1,000 INTER.UNIT Acetaminophen/ Hydrocodone Bitart ([place] 5/325 Tab) 1 tab BID PRN PO 12/03/17 18:45 12/17/17 18:44 12/04/17 09:15 1 TAB Levetiracetam (Keppra Soln) 500 mg BID PO 12/03/17 20:00 01/02/18 20:59 12/05/17 07:33 500 MG Lisinopril (Zestril Tab) 5 mg DAILY PO 12/04/17 08:00 01/03/18 08:59 12/05/17 07:33 5 MG Ranitidine HCl (zANTac TAB) 150 mg HS PO 12/03/17 21:00 01/02/18 20:59 12/04/17 20:08 150 MG Dextrose 1,000 ml @ 50 mls/hr Q20H IV 12/03/17 19:15 01/02/18 19:14 12/05/17 02:41 50 MLS/HR Senna (Senokot Syrup) 17.6 mg QAM PO 12/06/17 08:00 01/05/18 07:59 Polyethylene (Miralax Powder Packet) 17 gm DAILY PO 12/06/17 08:00 01/05/18 07:59 Objective Vital Signs Date Time Temp Pulse Resp B/P (MAP) Pulse Ox O2 Delivery O2 Flow Rate FiO2 12/05/17 09:05 52 132/74 (93) 12/05/17 08:55 Room Air 12/05/17 08:17 34.8 42 18 96 Room Air 12/05/17 00:30 Room Air 12/04/17 23:09 37.3 64 19 118/67 (84) 92 Room Air 12/04/17 20:02 62 118/67 (84) 12/04/17 16:00 96 Room Air 12/04/17 15:58 36.3 52 16 128/69 (88) Physical Exam General Appearance: no apparent distress Neck: no JVD Respiratory/Chest: lungs clear Cardiovascular: regular rate, rhythm, no JVD, no murmur Abdomen: non tender, soft Extremities: no pedal edema Neurologic/Psych: alert Skin: no jaundice, no rash Laboratory Results Last 24 Hours Test 12/05/17 05:17 White Blood Count 7.98 K/uL Red Blood Count 3.98 M/uL Hemoglobin 13.0 g/dL Hematocrit 38.9 % Mean Corpuscular Volume 97.7 fL Mean Corpuscular Hemoglobin 32.7 pg Mean Corpuscular Hemoglobin Concent 33.4 g/dl RDW Standard Deviation 47.3 fL RDW Coefficient of Variation 13.2 % Platelet Count 187 K/uL Mean Platelet Volume 12.2 fL Sodium Level 143 mmol/L Potassium Level 3.8 mmol/L Chloride Level 113 mmol/L Carbon Dioxide Level 25 mmol/L Anion Gap 5.0 mmol/L Blood Urea Nitrogen 22 mg/dl Creatinine 0.87 mg/dl Est Creatinine Clear Calc Drug Dose 39.1 ml/min Estimated GFR () 70.4 Estimated GFR (Non- 60.7 BUN/Creatinine Ratio 25.8 Random Glucose 88 mg/dl Calcium Level 9.6 mg/dl Total Bilirubin 2.1 mg/dl Direct Bilirubin 0.4 mg/dl Aspartate Amino Transf (AST/SGOT) 30 U/L Alanine Aminotransferase (ALT/SGPT) 47 U/L Alkaline Phosphatase 69 U/L Total Protein 5.4 gm/dl Albumin 2.6 gm/dl Assessment and Plan Ms. Escobedo is an 87 yr old female with UTI who had a fecal impaction which is now resolved. Plan: Prior to admission, the pt's stool regime was 2 Senna tabs and 2 docusate/day. Would change OP regime to: 1. Senna syrup, equivalent to 2 tabs (as nurses tell me she sometimes does do well with tabs) 2. Would add one dose of Miralax, scheduled, daily. 3. We spoke with her yesterday who spends a few hours with her every day. He will try to increase her liquid intake. 4. To simplify med regime, would cancel the colace as stool softeners are not generally effective for constipation. No GI contraindication to discharge, GI will sign off. I have seen , examined and agree with the plan as outlined by TEE Preciado as above. -exam reveals soft abd
[2017-12-05] MEDS: CEFTRIAXONE SOD INJ 1 GM in DEXTROSE 5% ADD-VANTAGE 50ML 50 ML IV SCH ×2 (13:31→15:00)
--- NOTE | 2017-12-05 15:17 | Progress Note ---
Internal Med Progress Note Date of Service: Dec 05, 2017. Provider Documentation: SUBJECTIVE: Seen and examined at bedside Patient is non verbal Seemed to be comfortable lying in bed No family at bedside Sodium levels normalized OBJECTIVE: Vital Signs-as noted below Physical Exam: General Appearance:Moderately built and nourished, no apparent distress Head: normocephalic, Atraumatic Eyes: normal inspection, EOMI, PERRL Neck: supple, Trachea midline Respiratory/Chest: Normal breath sounds, CTA Cardiovascular: S1, S2, No murmur Abdomen/GI:Soft, Non tender, Bowel sounds present Extremities/Musculoskelatal:normal inspection, no edema, +foot drop Neurologic/Psych:Complete Neuro exam could not be performed, Non verbal Skin: normal color, warm Lab data as noted below. ASSESSMENT & PLAN: Hypernatremia Patient presents from [facility] for evaluation of abdominal distention and hypernatremia, history unobtainable from patient due to her non verbal state likely secondary to dehydration from poor PO intake and UTI Continue D5W, decreased to 40ml/her, plan to DC tomorrow Monitor sodium levels: 153>>>143 today UTI Urine culture:gram negative bacilli Continue Rocephin Day # 3 Constipation: secondary to fecal impaction Resolved Continue bowel regimen per GI Appreciate GI input Mild Elevation of LFTs: Gall bladder USD: Cholelithiasis HTN continue carvedilol, lisinopril Epilepsy: continue Keppra Alzheimer's Dementia: Possible Functional Quadriplegia Seemed to be at baseline DVT Px: SQ Lovenox CODE STATUS DNR Disposition: Expect to discharge back to [facility] when medically stable Vital Signs: Date Time Temp Pulse Resp B/P (MAP) Pulse Ox O2 Delivery O2 Flow Rate FiO2 12/05/17 14:39 36.6 12/05/17 11:44 96 Room Air 12/05/17 09:05 52 132/74 (93) 12/05/17 08:55 Room Air 12/05/17 08:17 34.8 42 18 96 Room Air 12/05/17 00:30 Room Air 12/04/17 23:09 37.3 64 19 118/67 (84) 92 Room Air 12/04/17 20:02 62 118/67 (84) 12/04/17 16:00 96 Room Air 12/04/17 15:58 36.3 52 16 128/69 (88) Lab Results: Results Past 24 Hours Test 12/05/17 05:17 Range/Units White Blood Count 7.98 4.8-10.8 K/uL Red Blood Count 3.98 4.2-5.4 M/uL Hemoglobin 13.0 12.0-16.0 g/dL Hematocrit 38.9 37-47 % Mean Corpuscular Volume 97.7 80-100 fL Mean Corpuscular Hemoglobin 32.7 25-34 pg Mean Corpuscular Hemoglobin Concent 33.4 32-36 g/dl RDW Standard Deviation 47.3 36.4-46.3 fL RDW Coefficient of Variation 13.2 11.5-14.5 % Platelet Count 187 130-400 K/uL Mean Platelet Volume 12.2 7.4-10.4 fL Sodium Level 143 136-145 mmol/L Potassium Level 3.8 3.5-5.1 mmol/L Chloride Level 113 98-107 mmol/L Carbon Dioxide Level 25 21-32 mmol/L Anion Gap 5.0 3-11 mmol/L Blood Urea Nitrogen 22 7-18 mg/dl Creatinine 0.87 0.60-1.20 mg/dl Est Creatinine Clear Calc Drug Dose 39.1 ml/min Estimated GFR () 70.4 Estimated GFR (Non- 60.7 BUN/Creatinine Ratio 25.8 10-20 Random Glucose 88 70-99 mg/dl Calcium Level 9.6 8.5-10.1 mg/dl Total Bilirubin 2.1 0.2-1 mg/dl Direct Bilirubin 0.4 0-0.2 mg/dl Aspartate Amino Transf (AST/SGOT) 30 15-37 U/L Alanine Aminotransferase (ALT/SGPT) 47 12-78 U/L Alkaline Phosphatase 69 45-117 U/L Total Protein 5.4 6.4-8.2 gm/dl Albumin 2.6 3.4-5.0 gm/dl
[2017-12-05] MEDS: ENOXAPARIN 40 MG/0.4 ML SYR SQ SCH (21:18)
[2017-12-05] MEDS: RANITIDINE HCL 150 MG TAB PO SCH (21:19)
[2017-12-06] MEDS: DEXTROSE 5% 1000ML 1,000 ML IV SCH (01:15)
[2017-12-06] MEDS ORDERED: POLYETHYLENE (MIRALAX) 17 GM PACK PO SCH (08:00)
[2017-12-06] MEDS ORDERED: SENNA 17.6 MG/10 ML UDP PO SCH (08:00)
[2017-12-06 08:09] LABS: CALCIUM 9.2 mg/dl (8.5-10.1); CREATININE 0.82 mg/dl (0.60-1.20); POTASSIUM 3.7 mmol/L (3.5-5.1)
[2017-12-06] MEDS: ASPIRIN 81 MG CHEW PO SCH (08:42)
[2017-12-06] MEDS: CARVEDILOL 3.125 MG TAB PO SCH (08:43)
[2017-12-06] MEDS: LEVETIRACETAM SOLN 500 MG/5 ML UDP PO SCH (08:44)
[2017-12-06] MEDS: CHOLECALCIFEROL 1000 INTER.UNIT TAB PO SCH (08:48)
[2017-12-06] MEDS: LISINOPRIL 5 MG TAB PO SCH (08:49)
[2017-12-06 09:30] VITALS: BP 135/74; PULSE 54; TEMP 36.4; O2SAT 94
--- NOTE | 2017-12-06 13:11 | Progress Note ---
Internal Med Progress Note Date of Service: Dec 06, 2017. Provider Documentation: SUBJECTIVE: Seen and examined at bedside Doing well Discussed with in detail Patient is non verbal Seemed to be comfortable lying in bed, having lunch Sodium levels normalized OBJECTIVE: Vital Signs-as noted below Physical Exam: General Appearance:Moderately built and nourished, no apparent distress Head: normocephalic, Atraumatic Eyes: normal inspection, EOMI, PERRL Neck: supple, Trachea midline Respiratory/Chest: Normal breath sounds, CTA Cardiovascular: S1, S2, No murmur Abdomen/GI:Soft, Non tender, Bowel sounds present Extremities/Musculoskelatal:normal inspection, no edema, +foot drop Neurologic/Psych:Complete Neuro exam could not be performed, Non verbal Skin: normal color, warm Lab data as noted below. ASSESSMENT & PLAN: Hypernatremia Patient presents from [facility] for evaluation of abdominal distention and hypernatremia, history unobtainable from patient due to her non verbal state likely secondary to dehydration from poor PO intake and UTI Will DC D5W Monitor sodium levels: 153>>>143 today Encourage to drink PO liquids UTI Urine culture:gram negative bacilli Continue Rocephin Day # 4 Constipation: secondary to fecal impaction Resolved Continue bowel regimen per GI Appreciate GI input Mild Elevation of LFTs: Gall bladder USD: Cholelithiasis HTN continue carvedilol, lisinopril Epilepsy: continue Keppra Alzheimer's Dementia: Possible Functional Quadriplegia Seemed to be at baseline DVT Px: SQ Lovenox CODE STATUS DNR Disposition: Expect to discharge back to [facility] today Follow up with your Primary Care Physician in 1 week Follow up with your watch crystal molder as needed Complete the antibiotic course as prescribe Get Blood test (Basic metabolic panel) in 1 week and follow up with your Primary care physician Continue stool softners as prescribed Seek immediate medical attention if your symptoms reoccur or worsen Vital Signs: Date Time Temp Pulse Resp B/P (MAP) Pulse Ox O2 Delivery O2 Flow Rate FiO2 12/06/17 09:30 36.4 54 20 135/74 (94) 94 Room Air 12/06/17 00:00 Room Air 12/05/17 23:55 36.9 67 18 106/62 (77) 95 Room Air 12/05/17 21:16 70 18 105/57 (73) 92 Room Air 12/05/17 17:08 96 Room Air 12/05/17 16:10 36.3 58 16 132/66 (88) 96 Room Air 12/05/17 14:39 36.6 Lab Results: Results Past 24 Hours Test 12/06/17 07:19 Range/Units Sodium Level 143 136-145 mmol/L Potassium Level 3.7 3.5-5.1 mmol/L Chloride Level 113 98-107 mmol/L Carbon Dioxide Level 23 21-32 mmol/L Anion Gap 7.0 3-11 mmol/L Blood Urea Nitrogen 17 7-18 mg/dl Creatinine 0.82 0.60-1.20 mg/dl Est Creatinine Clear Calc Drug Dose 41.5 ml/min Estimated GFR () 75.6 Estimated GFR (Non- 65.3 BUN/Creatinine Ratio 20.2 10-20 Random Glucose 86 70-99 mg/dl Calcium Level 9.2 8.5-10.1 mg/dl
[2017-12-06] MEDS ORDERED: CEFU1TAB36 PO (13:17)
[2017-12-06] MEDS ORDERED: SNKUDL10 PO (13:17)
--- NOTE | 2017-12-06 13:20 | Discharge Summary ---
Discharge Summary Date of Service Dec 06, 2017. Discharge Summary Admission Date: Dec 03, 2017 at 17:59 Discharge Date: Dec 06, 2017 Discharge Disposition: detention facility Principal Diagnosis: UTI, Hypernatremia, constipation Procedures: CT ABD: 1. Large stool ball in the rectum with associated rectal wall thickening and mild surrounding inflammatory stranding suggests stercoral proctitis. No associated bowel obstruction. 2. Colonic diverticulosis without CT evidence of acute diverticulitis. 3. Cholelithiasis and mild common bile duct dilation without CT evidence of acute cholecystitis. 4. Prior granulomatous disease. 5. 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 6. 2 mm nonobstructing calculus of the inferior pole right kidney. CXR: No acute process. Gall bladder USD: 1. Cholelithiasis. No sonographic evidence of acute cholecystitis. 2. Mild dilatation of the common bile duct which is either diminished or unchanged since ultrasound of November 27, 2012. KUB: Nonobstructive bowel pattern. No current evidence for fecal impaction. 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 Consultations: GI Pending Studies/Follow-Up: Follow up with your Primary Care Physician in 1 week Follow up with your qualitative field coordinator as needed Complete the antibiotic course as prescribe Get Blood test (Basic metabolic panel) in 1 week and follow up with your Primary care physician Continue stool softeners as prescribed Seek immediate medical attention if your symptoms reoccur or worsen Medication Reconciliation New Medications: Cefuroxime Axetil (Cefuroxime Axetil) 500 Mg Tab 1 TAB PO BID for 6 Days, #12 TAB Senna (Senna-Grx) 17.6 Mg/10 Ml Syrp 17.6 MG PO QAM for 30 Days, 1 Refill Continued Medications: Aspirin (Aspirin Chewable) 81 Mg Chew 81 MG PO DAILY, TAB Bisacodyl (Bisac-Evac) 10 Mg Sup 1 SUPP RE DAILY PRN for Constipation Carvedilol (Coreg) 3.125 Mg Tab 3.125 MG PO BID, TAB Cholecalciferol (Vitamin D3) 1,000 Unit Tab 1 TAB PO DAILY for 30 Days, #30 TAB 5 Refills Hydrocodone/Acetaminophen 5MG/325MG ([place] 5MG/325MG) Tab 1 TABLET PO BID PRN for Pain MAX 3 GM APAP/24 HRS Levetiracetam (Keppra) 100 Mg/Ml Dian 5 ML PO BID for 30 Days Lisinopril (Zestril) 5 Mg Tab 5 MG PO DAILY, TAB Oseltamivir (Tamiflu) 75 Mg Cap 75 MG PO DAILY, #10 CAP prophylaxis, to complete on 12/05 Polyethylene Glycol 3350 (Miralax) 1 Pow Pow 17 GM PO DAILY, #527 GM Ranitidine (Zantac) 150 Mg Tab 150 MG PO HS, TAB Discontinued Medications: Docusate Sodium (Silace) 60 Mg/15 Ml Syp 100 MG PO BID Sennosides-Docusate Sodium (Senna-S) 1 Tab Tab 2 TAB PO DAILYBD Admission Information HPI (per Admitting provider): 87 year old female who was sent to the ED from [facility] for evaluation of abdominal distention and abnormal labs. History is unobtainable from patient due to her non verbal state. Review of outpatient records show that patient has had a very poor appetite recently. Labs were obtained that showed hypernatremia and elevated bilirubin. No other symptoms reported per view of outpatient chart. In the ED, patient's Na+ is 153 and U/A suggests UTI. Abdominal imaging shows constipation without other acute findings. Physical Exam (per Admitting): General Appearance: WD/WN, no apparent distress Head: normocephalic, atraumatic Eyes: normal inspection, EOMI, sclerae normal ENT: hearing grossly normal, + pertinent finding (mucous membranes dry) Neck: supple, no JVD, trachea midline Respiratory/Chest: lungs clear, normal breath sounds, no respiratory distress Cardiovascular: regular rate, rhythm, no edema, normal peripheral pulses Abdomen/GI: normal bowel sounds, non tender, soft, no organomegaly Genitourinary - Female: + pertinent finding (cohne in place) Extremities/Musculoskelatal: no calf tenderness, normal capillary refill, + pertinent finding (BL foot drop) Neurologic/Psych: alert, + pertinent finding (non verbal) Skin: normal color, warm/dry Hospital Course Hypernatremia Patient presents from [facility] for evaluation of abdominal distention and hypernatremia, history unobtainable from patient due to her non verbal state likely secondary to dehydration from poor PO intake and UTI Will DC D5W Monitor sodium levels: 153>>>143 today Encourage to drink PO liquids UTI Urine culture:gram negative bacilli Continue Rocephin Day # 4 Constipation: secondary to fecal impaction Resolved Continue bowel regimen per GI Appreciate GI input Mild Elevation of LFTs: Gall bladder USD: Cholelithiasis HTN continue carvedilol, lisinopril Epilepsy: continue Keppra Alzheimer's Dementia: Possible Functional Quadriplegia Seemed to be at baseline DVT Px: SQ Lovenox CODE STATUS DNR Disposition: Expect to discharge back to [facility] today Follow up with your Primary Care Physician in 1 week Follow up with your qualitative field coordinator as needed Complete the antibiotic course as prescribe Get Blood test (Basic metabolic panel) in 1 week and follow up with your Primary care physician Continue stool softners as prescribed Seek immediate medical attention if your symptoms reoccur or worsen Total time spent on discharge = 34 minutes This includes examination of the patient, discharge planning, medication reconciliation, and communication with other providers. Discharge Instructions Discharge Instructions Date of Service Dec 06, 2017. Admission Reason for Admission: Dehydration Discharge Discharge Diagnosis / Problem: UTI, Hypernatremia, constipation Discharge Goals Goal(s): Decrease discomfort, Improve function Activity Recommendations Activity Limitations: resume your previous activity Exercise/Sports Limitations: as tolerated . Instructions / Follow-Up Instructions / Follow-Up Follow up with your Primary Care Physician in 1 week Follow up with your qualitative field coordinator as needed Complete the antibiotic course as prescribe Get Blood test (Basic metabolic panel) in 1 week and follow up with your Primary care physician Continue stool softeners as prescribed Seek immediate medical attention if your symptoms reoccur or worsen Current Hospital Diet Patient's current hospital diet: Regular Diet Discharge Diet Recommended Diet: Regular Diet Pending Studies Studies pending at discharge: no Medical Emergencies . Who to Call and When: Medical Emergencies: If at any time you feel your situation is an emergency, please call 911 immediately. . Non-Emergent Contact Non-Emergency issues call your: Primary Care Provider Call Non-Emergent contact if: you have a fever, your pain is not controlled, your pain is worsening, your pain is unusual for you, your pain is concerning you, you have any medication questions Seek immediate medical attention if your symptoms reoccur or worsen . . "Provider Documentation" section prepared by Fer Wallis. . VTE Core Measure Inpt VTE Proph given/why not?: Enoxaparin (Lovenox)SQ <Electronically signed by Fer Wallis MD> Signed: 12/06/17 1319 Signed: The status of this report is Signed * If report status is Draft, the document has not been finalized by the responsible provider.
[2017-12-06] MEDS: CEFTRIAXONE SOD INJ 1 GM in DEXTROSE 5% ADD-VANTAGE 50ML 50 ML IV SCH (14:52)
[2017-12-06 15:37] VITALS: BP 135/74; PULSE 54; TEMP 36.4; O2SAT 94
== END 2017-12-06 16:15 | DRG 640 ==
LOC: EDBD 11:52 → C.EDB 11:54 → C.4E 17:59 → ENRESERV 18:22 → C.MS4W 12-05 11:37
PROVIDERS: ADMIT Hospitalist; ATTEND Internal Medicine
DX: E87.0 Hyperosmolality and hypernatremia (principal); R53.2 Functional quadriplegia; K56.7 Ileus, unspecified; N39.0 Urinary tract infection, site not specified; B96.89 Other specified bacterial agents as the cause of diseases classified elsewhere; E86.0 Dehydration; K59.00 Constipation, unspecified; R63.0 Anorexia; R94.5 Abnormal results of liver function studies; K80.20 Calculus of gallbladder without cholecystitis without obstruction; K82.8 Other specified diseases of gallbladder; I11.0 Hypertensive heart disease with heart failure; N18.3 Chronic kidney disease, stage 3 (moderate); I25.10 Atherosclerotic heart disease of native coronary artery without angina pectoris; G40.909 Epilepsy, unspecified, not intractable, without status epilepticus; K21.9 Gastro-esophageal reflux disease without esophagitis; I69.398 Other sequelae of cerebral infarction; M24.50 Contracture, unspecified joint; M21.372 Foot drop, left foot; M21.371 Foot drop, right foot; G30.9 Alzheimer's disease, unspecified; F02.80 Dementia in other diseases classified elsewhere, unspecified severity, without behavioral disturbance, psychotic disturbance, mood disturbance, and anxiety; I25.2 Old myocardial infarction; Z66 Do not resuscitate; Z68.21 Body mass index [BMI] 21.0-21.9, adult; Z79.82 Long term (current) use of aspirin; Z79.899 Other long term (current) drug therapy